=== PATIENT | male | born 1965 | race Hispanic/Latino ===

== ENCOUNTER 2017-04-23 22:56 | Emergency (ER) | payer OTHER ==
[2017-04-23 22:56] VITALS: BMI 44.2
[2017-04-23 23:10] VITALS: BP 168/81; PULSE 84; RESP 20; TEMP 98; O2SAT 100
--- NOTE | 2017-04-24 00:03 | C.PDOC ---
History Of Present Illness 51 year old male w/PMHx of HTN, DM, cervical radiculopathy,carpal tunnel, presents to the ED for evaluation of upper right arm pain radiating to his right shoulder and right sided lateral neck that gradually developed today. Patient reports pain is constant, aching, localized and worsens with movement of his right arm. Pt admits, took Gabapentin early today without significant improvement in pain. Otherwise, Patient denies known trauma or injury, fever, headache, dizziness, visual changes, CP, SOB, palpitations, diaphoresis, denies deformity, weakness, sensory or vascular deficits to B/L UEs. Ambulate to ED for evaluation, not in any apparent distress. Time Seen by Provider: 04/23/17 23:19 Chief Complaint (Nursing): Upper Extremity Problem/Injury History Per: Patient History/Exam Limitations: no limitations Onset/Duration Of Symptoms: Hrs Current Symptoms Are (Timing): Still Present Quality: Aching Severity: None Exacerbating Factor(s): Movement Recent travel outside of the [place]: No Additional History Per: Patient Past Medical History Reviewed: Historical Data, Nursing Documentation, Vital Signs Vital Signs: Last Vital Signs Temp 98 F 04/23/17 23:04 Pulse 84 04/23/17 23:04 Resp 20 04/23/17 23:04 BP 168/81 H 04/23/17 23:04 Pulse Ox 100 04/24/17 00:27 - Medical History PMH: Anxiety, Arthritis, Asthma, Depression, Gastritis, HTN, Hypercholesterolemia, Sleep Apnea Denies: Colonic Polyps, Chronic Kidney Disease Surgical History: Endoscopy, Tonsillectomy Family History: States: Unknown Family Hx - Social History Hx Alcohol Use: No Hx Substance Use: No Review Of Systems Constitutional: Negative for: Fever, Chills Cardiovascular: Negative for: Chest Pain, Palpitations Respiratory: Negative for: Cough, Shortness of Breath Gastrointestinal: Negative for: Nausea, Vomiting, Abdominal Pain Musculoskeletal: Positive for: Neck Pain (Right sided), Shoulder Pain (Right), Arm Pain (Right). Negative for: Back Pain Skin: Negative for: Rash Neurological: Negative for: Weakness, Numbness, Headache Physical Exam - Physical Exam Appears: Non-toxic, No Acute Distress Skin: Normal Color, Warm, Dry Head: Atraumatic, Normacephalic Eye(s): bilateral: Normal Inspection, PERRL, EOMI Ear(s): Bilateral: Normal Nose: No Discharge, No Deformity Oral Mucosa: Moist, No Drooling Throat: Normal, No Erythema, No Exudate, No Drooling Neck: Normal ROM, Supple, Other (Tenderness right lateral neck ) Chest: Symmetrical Cardiovascular: Rhythm Regular, No Murmur Respiratory: Normal Breath Sounds, No Rales, No Rhonchi, No Wheezing Gastrointestinal/Abdominal: Soft, No Tenderness, No Distention, No Guarding, No Rebound Extremity: Normal ROM, Tenderness (Right arm bicep area extending to right superior shoulder ), No Pedal Edema, No Calf Tenderness, Capillary Refill (< 2 seconds), No Deformity, No Swelling Pulses: Left Radial: Normal, Right Radial: Normal Neurological/Psych: Oriented x3, Normal Speech, Normal Cognition, Normal Motor, Normal Sensation Gait: Steady ED Course And Treatment ECG: Interpreted By Me, Viewed By Me (and ED attending) Interpretation Of ECG: SR@90/min, Qwave III, T wave inversion in III, no acute ST-T changes. O2 Sat by Pulse Oximetry: 100 (On RA) Pulse Ox Interpretation: Normal Progress Note: On re-evaluation, pt is afebrile, hemodynamicaly stable. Non- toxic. Tolerate Po well in ED. PulsEOx 100% RA. Neck: SUpple, (-) jvd, (-) carotid bruits B/L. Lungs: CTA B/L, BS equal B/L. CVS: (+)S1S2, reg. Abd: benign. RUE: FAROM, no neurovascular deficits. Neuorlogicaly intact. Accucheck 129. EKG- normal study. Pt has clinical findings c/w Right UE pain r /o cervical radiculopathy. Parentt advised and ref. to f/u with PMD in 1-2 days for re-evaluation. return to ED if any worsening or new changes. Disposition Counseled Patient/Family Regarding: Studies Performed, Diagnosis, Need For Followup, Rx Given - Disposition Referrals: Jeana Wood MD [Staff Provider] - Disposition: HOME/ ROUTINE Disposition Time: 23:55 Condition: STABLE Additional Instructions: LIGHT DUTY TO RIGHT ARM FOR 1-2 WEEKS TAKE PAIN MEDICATION NEED FOLLOW UP WITH PMD IN 1-2 DAYS FOR RE-EVALUATION. RETURN TO ED IF ANY WORSENING OR NEW CHANGES. Prescriptions: Methocarbamol [Robaxin] 500 mg PO TID #14 tab traMADol [Ultram] 50 mg PO TID #7 tab Instructions: Cervical Radiculopathy (ED) Forms: [email or web address] (Czech) - Clinical Impression Clinical Impression: Cervical radiculopathy - PA / DIRECTOR BIOLOGICS / Resident Statement MD/DO has reviewed & agrees with the documentation as recorded. - Scribe Statement The provider has reviewed the documentation as recorded by the Scribe Jordan Vizcarra All medical record entries made by the Scribe were at my direction and personally dictated by me. I have reviewed the chart and agree that the record accurately reflects my personal performance of the history, physical exam, medical decision making, and the department course for this patient. I have also personally directed, reviewed, and agree with the discharge instructions and disposition.
== END 2017-04-24 00:12 | disposition home or self-care (01) ==
LOC: C.ER 22:56
DX: M54.12 Radiculopathy, cervical region (principal); I10 Essential (primary) hypertension; E11.9 Type 2 diabetes mellitus without complications; E78.00 Pure hypercholesterolemia, unspecified

== ENCOUNTER 2017-05-01 18:11 | Emergency (ER) | payer OTHER ==
[2017-05-01 18:11] VITALS: BMI 44.2
[2017-05-01 18:31] VITALS: BP 155/85; PULSE 90; RESP 16; TEMP 98.2; O2SAT 98
--- NOTE | 2017-05-01 18:45 | C.PDOC ---
History Of Present Illness 51 year old male with multiple medical problems comes to the ED with a bruise on right upper extremity that he first noticed today with out any clear recall of an injury. patient is unsure how long the bruise has been there. pt sts that he was seen in the ED last week for severe pain in his right arm, and diagnosed with cervical radiculopathy. He further reports that on Tuesday while cleaning himself in the bathroom he heard a 'pop' when he moved his right arm behind him. Patient states he feels more of a discomfort in the arm rather than pain, and that it is not similar to the pain he was previously evaluated in the ED for. Denies numbness, weakness, tingling, trauma, injury. pt takes baby asa every other day, no other blood thinners. Time Seen by Provider: 05/01/17 18:32 Chief Complaint (Nursing): Upper Extremity Problem/Injury History Per: Patient History/Exam Limitations: no limitations Onset/Duration Of Symptoms: Unknown Current Symptoms Are (Timing): Still Present Quality: Other (discomfort) Pain Scale Rating Of: 4 Exacerbating Factor(s): Nothing Recent travel outside of the [place]: No Past Medical History Reviewed: Historical Data, Nursing Documentation Vital Signs: Last Vital Signs Temp 98.2 F 05/01/17 18:27 Pulse 90 05/01/17 18:27 Resp 16 05/01/17 18:27 BP 155/85 H 05/01/17 18:27 Pulse Ox 98 05/01/17 21:40 - Medical History PMH: Anxiety, Arthritis, Asthma, Depression, Gastritis, HTN, Hypercholesterolemia, Sleep Apnea Denies: Colonic Polyps, Chronic Kidney Disease Surgical History: Endoscopy, Tonsillectomy Family History: States: Unknown Family Hx - Social History Hx Alcohol Use: No Hx Substance Use: No Review Of Systems Musculoskeletal: Positive for: Arm Pain (right) Skin: Positive for: Bruising Neurological: Negative for: Weakness, Numbness Physical Exam - Physical Exam Appears: Non-toxic, No Acute Distress, Other (overweight) Skin: Normal Color, Warm, Dry, Ecchymosis (v shaped area to right mid upper arm medial aspect, apprx 3-4 cm each side, with bruising along sides and ecchymosis/ purplish color in middle of v shape, mild swelling and induration, tenderness, compartment soft, +2 radial pulse, able to supinate and pronate, able to flex and extend with no difficulty, +2 radial pulse. ) Ear(s): Bilateral: Normal Neck: Normal ROM, Supple Extremity: Normal ROM (Full ROM of right arm; able to pronate and supinate, flex and extend at elbow with no difficulty.), Tenderness, Swelling (at sight of bruise) Pulses: Left Radial: Normal, Right Radial: Normal Neurological/Psych: Oriented x3, Normal Speech, Normal Cognition, Normal Motor, Normal Sensation ED Course And Treatment O2 Sat by Pulse Oximetry: 98 (RA) Pulse Ox Interpretation: Normal Medical Decision Making Medical Decision Makin Initial Impression 51 y/o male presenting with bruise on right forearm Initial Plan: * Tylenol 650mg PO * Reevaluation * * 740 p pt with contusion to right upper arm, possible muscle tear. will apply cold compress, elevation, f/u ortho/ Disposition Counseled Patient/Family Regarding: Diagnosis, Need For Followup - Disposition Referrals: Boyd Chatman III, MD [Staff Provider] - Disposition: HOME/ ROUTINE Disposition Time: 19:40 Condition: STABLE Additional Instructions: Apply cold compresses several times a day to bruise on arm to help reduce swelling. Tylenol for pain. Elevate when possible. Follow up with orthopedics. Instructions: Contusion in Adults (ED) Forms: [facility] (Guamanian), General Discharge Instructions - Clinical Impression Clinical Impression: Contusion - Scribe Statement The provider has reviewed the documentation as recorded by the Scribsarah Grlulon All medical record entries made by the Scribe were at my direction and personally dictated by me. I have reviewed the chart and agree that the record accurately reflects my personal performance of the history, physical exam, medical decision making, and the department course for this patient. I have also personally directed, reviewed, and agree with the discharge instructions and disposition.
== END 2017-05-01 19:50 | disposition home or self-care (01) ==
LOC: C.ER 18:11
DX: S50.11XA Contusion of right forearm, initial encounter (principal); X58.XXXA Exposure to other specified factors, initial encounter; Y92.9 Unspecified place or not applicable

== ENCOUNTER 2017-06-02 13:15 | Emergency (ER) | payer OTHER ==
[2017-06-02 13:16] VITALS: BMI 44.2
--- NOTE | 2017-06-02 14:41 | C.PDOC ---
History Of Present Illness 51 y/o male with extensive PMHx including DM, HTN, Asthma and GERD presents to ED with complaints of hives rash developed this morning with associated tongue and lower lip swelling. Patient reports diarrhea 2 days ago that resolved this morning, states he has taken Lamatol and Pepto bismol. At ed patient states his tongue still feels swollen but no swelling is noted. Patient is speaking in full sentences and denies fever,chills, nausea, vomiting or any other complaints at this time. Time Seen by Provider: 06/02/17 14:06 Chief Complaint (Nursing): GI Problem History Per: Patient History/Exam Limitations: no limitations Onset/Duration Of Symptoms: Days Current Symptoms Are (Timing): Still Present Past Medical History Reviewed: Historical Data, Nursing Documentation, Vital Signs Vital Signs: Last Vital Signs Temp 98.4 F 06/02/17 13:26 Pulse 108 H 06/02/17 13:26 Resp 20 06/02/17 13:26 BP 137/81 06/02/17 13:26 Pulse Ox 96 06/02/17 14:47 - Medical History PMH: Anxiety, Arthritis, Asthma, Depression, Gastritis, HTN, Hypercholesterolemia, Sleep Apnea Surgical History: Endoscopy, Tonsillectomy Family History: States: No Known Family Hx - Social History Hx Alcohol Use: No Hx Substance Use: No - Immunization History Hx Tetanus Toxoid Vaccination: No Hx Influenza Vaccination: No Hx Pneumococcal Vaccination: No Review Of Systems Constitutional: Negative for: Fever, Chills Cardiovascular: Negative for: Chest Pain Respiratory: Negative for: Shortness of Breath Gastrointestinal: Positive for: Diarrhea. Negative for: Nausea, Vomiting Skin: Positive for: Rash Physical Exam - Physical Exam Appears: Non-toxic, No Acute Distress Skin: Warm, Dry, Rash (To both arms) Head: Atraumatic, Normacephalic Eye(s): bilateral: Normal Inspection Oral Mucosa: Moist Tongue: Normal Appearing, No Swelling, No Lesions Lips: No Swelling, Other (Chapped) Throat: Normal, No Erythema, No Exudate Neck: Supple Cardiovascular: Rhythm Regular Respiratory: Normal Breath Sounds, No Rales, No Rhonchi, No Wheezing Gastrointestinal/Abdominal: Soft, No Tenderness, No Guarding, No Rebound, Other (Obese) Neurological/Psych: Oriented x3 ED Course And Treatment O2 Sat by Pulse Oximetry: 96 (RA) Pulse Ox Interpretation: Normal Medical Decision Making Medical Decision Making: Plan: Ppecid, Benadryl and Prednisone administered Patient has appointment with PMD tomorrow Disposition Counseled Patient/Family Regarding: Diagnosis, Need For Followup, Rx Given - Disposition Disposition: HOME/ ROUTINE Disposition Time: 16:28 Condition: STABLE Additional Instructions: Please follow up with your doctor. Return to the Emergency Department with any further concerns. You had an allergic reaction. It could have been due to the medication you took today, or from long standing medications. Please discuss your medications with your medications with your doctor. Prescriptions: DiphenhydrAMINE [Benadryl] 25 mg PO BID #4 cap Prednisone [Deltasone] 60 mg PO DAILY #3 tablet Instructions: Urticaria (ED) Forms: [facility] (Bahamian), General Discharge Instructions - POA Present On Arrival: None - Clinical Impression Clinical Impression: Allergic urticaria - Scribe Statement The provider has reviewed the documentation as recorded by the Barak Marte All medical record entries made by the Claudiaibsarah were at my direction and personally dictated by me. I have reviewed the chart and agree that the record accurately reflects my personal performance of the history, physical exam, medical decision making, and the department course for this patient. I have also personally directed, reviewed, and agree with the discharge instructions and disposition.
[2017-06-02 16:30] VITALS: BP 100/67; PULSE 95; RESP 18; TEMP 98
[2017-06-02 16:32] VITALS: O2SAT 96
== END 2017-06-02 17:04 | disposition home or self-care (01) ==
LOC: C.ER 13:15
DX: L50.0 Allergic urticaria (principal); E78.00 Pure hypercholesterolemia, unspecified; I10 Essential (primary) hypertension